=== PATIENT | female | born 1995 | race Caucasian/White ===

== ENCOUNTER 2021-08-27 20:35 | Emergency (ER) | payer OTHER ==
[~2021-08-27] VITALS: Ht 157.5 cm; Wt 54.5 kg
[2021-08-27] MEDS ORDERED: DOXYCYCLINE 10100 MG PO (21:19)
[2021-08-27] MEDS ORDERED: ZOVIRAX400 MG PO (21:19)
[2021-08-27 21:51] VITALS: BP 137/103; PULSE 73; TEMP 97.7
== END 2021-08-27 21:49 | disposition home or self-care (01) ==
LOC: COL.ER 20:35
DX: A54.03 Gonococcal cervicitis, unspecified (principal); B00.9 Herpesviral infection, unspecified; F17.210 Nicotine dependence, cigarettes, uncomplicated; Z28.311 Partially vaccinated for COVID-19
CPT/HCPCS: J0696